=== PATIENT | female | born 1980 | race Caucasian/White ===

== ENCOUNTER 2018-02-15 02:27 | Emergency (ER) | payer SELFPAY ==
--- NOTE | 2018-02-15 02:48 | ED ---
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 She was found unconscious by her roommate. The patient has a history of alcohol abuse. The nurse reports that she does not smell of alcohol but has vomited once in the ED. Nurse reports that she responds to verbal stimulation and was last seen normal at 10am. Level 5 caveat , unable to speak. - History Of Current Complaint Chief Complaint: EDSubstanceAbuse Stated Complaint: UNCONSCIOUS Time Seen by Provider: 02/15/18 02:40 Hx Obtained From: EMS Hx From Patient Unobtainable Due To: Extremis - unconscious Hx Last Menstrual Period: 1 WEEK AGO Character: Other - unconscious - Allergies/Home Medications Allergies/Adverse Reactions: Allergies Allergy/AdvReac Type Severity Reaction Status Date / Time No Known Allergies Allergy Verified 02/15/13 19:38 PMH/Surg Hx/FS Hx/Imm Hx Endocrine/Hematology History: Denies: Hx Diabetes, Hx Thyroid Disease Cardiovascular History: Denies: Hx Hypertension Respiratory History: Reports: Hx Asthma, Other Respiratory Problems/Disorders - HX OF PNEUMONIA Denies: Hx Chronic Obstructive Pulmonary Disease (COPD) GI History: Denies: Hx Ulcer Infectious Disease History: Unable to Obtain/Confirm Infectious Disease History: Denies: Hx Hepatitis, Hx Human Immunodeficiency Virus (HIV), Traveled Outside the [place] in Last 30 Days - Family History Known Family History: Positive: Unknown - Social History Substance Use Type: Reports: None Review of Systems - ROS Summary Review of Systems Summary: level 5 caveat, unconscious All Other Systems Reviewed And Are Negative: No Physical Exam - Summary Physical Exam Summary: Appearance: Well-appearing, Well-nourished, lying in bed comfortable. Skin: Warm, dry, no obvious rash Eyes: sclera anicteric, no conjunctival pallor ENT: mucous membranes moist Neck: deferred Respiratory: No signs of respiratory distress Cardiovascular: Appears well perfused, pulses are nml Abdomen: deferred Musculoskeletal: Moving all 4 extremities without obvious discomfort Neurological: Depressed level of consciousness. Nurse says she was aroused while being changed. Psychiatric: affect is normal, does not appear anxious or depressed Triage Information Reviewed: Yes Vital Signs On Initial Exam: Initial Vitals Temp Pulse Resp BP Pulse Ox 97.6 F 66 16 129/70 95 02/15/18 02:30 02/15/18 02:30 02/15/18 02:30 02/15/18 02:30 02/15/18 02:30 Vital Signs Reviewed: Yes Completion Of Physical Exam Limited Due To: Other - unconscious Diagnostics - Vital Signs Vital Signs Temp Pulse Resp BP Pulse Ox 02/15/18 02:30 97.6 F 66 16 129/70 95 - Laboratory Result Diagrams: 02/15/18 02:55 02/15/18 02:55 Lab Statement: Any lab studies that have been ordered have been reviewed, and results considered in the medical decision making process. 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 She was found unconscious by her roommate. The patient has a history of alcohol abuse. The nurse reports that she does not smell of alcohol but has vomited once in the ED. Nurse reports that she responds to verbal stimulation and was last seen normal at 10am. Level 5 caveat, unable to speak. Test results with no significant abnormalities. In the ED course the patient was given Acetaminophen. Patient will be signed out to Dr. Denis due to MHE - Diagnoses Differential Diagnosis/HQI/PQRI: Positive: Alcohol Abuse, Metabolic Disorder, Suicidal Risk Provider Diagnoses: Alcohol intoxication delirium Discharge - Sign-Out/Discharge Documenting (check all that apply): Sign-Out Patient Signing out patient TO: Juan Antonio Denis - Discharge Plan Patient Education Materials: Abuse of Alcohol (ED) Referrals: [facility] [Outside] [facility] [Outside] Maximo Beltran MD [Primary Care Provider] - - Attestation Statements Document Initiated by Scribe: Yes Documenting Scribe: Daniel Schmidt Provider For Whom Scribe is Documenting (Include Credential): Ernie Fung MD Scribe Attestation: Daniel Braxton, scribed for Ernie Fung MD on 02/15/18 at 0654. Status of Scribe Document: Ready
[2018-02-15 03:10] LABS: ABS Basophils 0.1 10^3/ul (0-0.2); ABS Eosinophils 0.1 10^3/ul (0-0.6); ABS Lymphocytes 2.6 10^3/ul (1.0-4.8); ABS Monocytes 0.8 10^3/ul (0-0.8); ABS Neutrophils 8.5 10^3/ul (1.5-7.7); ABS Nucleated RBC 0 10^3/ul; Eosinophil % 1.1 %; Hematocrit 47 % (35-47); Hemoglobin 15.5 g/dl (12.0-16.0); Lymphocyte % 21.7 %; Mean Corpuscular HGB Conc 33 g/dl (31-36); Mean Corpuscular Hemoglobin 31 pg (27-31); Mean Corpuscular Volume 95 fL (80-97); Mean Platelet Volume 7.1 fL (7.4-10.4); Nucleated Red Blood Cells % 0.1; Platelet Count 305 10^3/ul (150-450); Red Blood Count 4.95 10^6/ul (4.00-5.40); Red Cell Distribution Width 13 % (10.5-15); White Blood Count 12.1 10^3/ul (3.5-10.8)
[2018-02-15 03:30] LABS: EGFR Non-African American 83.9 (>60)
--- NOTE | 2018-02-15 07:25 | ED ---
Progress - Progress Note Progress Note: This patient was signed out from Dr. Fung on shift change awaiting MHE. After MHE by Dr. Palomino the patient was deemed stable to be discharged home with a dx of depression. She will f[facility]u with [facility]. Re-Evaluation - Re-Evaluation First Eval Re-Evaluation Time: 06:40 Comment: the patient is now suicidal and will be seen my mental health Second Eval Re-Evaluation Time: 07:23 Change: Worse Comment: The patient is expressing SI and will be put on observation. Course/Dx - Course Course Of Treatment: This patient was signed out from Dr. Fung on shift change awaiting MHE. After MHE by Dr. Palomino the patient was deemed stable to be discharged home with a dx of depression. She will f[facility] with [facility]. - Diagnoses Provider Diagnoses: Depression Discharge - Sign-Out/Discharge Documenting (check all that apply): Patient Departure, Receiving Sign-Out Receiving patient FROM: Ernie Fung - Discharge Plan Condition: Stable Disposition: HOME Patient Education Materials: Depression (ED), Abuse of Alcohol (ED) Referrals: [facility] [Outside] [facility] [Outside] [facility] [Outside] (please follow up with your appt on February [address] Doe) Maximo Beltran MD [Primary Care Provider] - - Billing Disposition and Condition Condition: STABLE Disposition: Home - Attestation Statements Document Initiated by Jade: Yes Documenting Scribe: Juan Daniel Martinez Provider For Whom Angellaibe is Documenting (Include Credential): Juan Antonio Denis MD Scribe Attestation: IJuan Daniel scribed for Juan Antonio Denis MD on 02/15/18 at 1732. Scribe Documentation Reviewed: Yes Provider Attestation: The documentation as recorded by the Juan Daniel turcios accurately reflects the service I personally performed and the decisions made by me, Juan Antonio Denis MD Status of Scribe Document: Viewed
[2018-02-15 09:25] LABS: Urine Appearance Cloudy; Urine Blood Negative (Negative); Urine Color Yellow; Urine Ketones 1+ (Negative); Urine Protein Negative (Negative); Urine Specific Gravity 1.019 (1.010-1.030); Urine Urobilinogen Negative (Negative)
[2018-02-15] MEDS ORDERED: diPHENhydraMINE PO* 25 MG PO ONE (10:15)
[2018-02-15] MEDS ORDERED: diPHENhydraMINE PO* 25 MG ONE (10:18)
[2018-02-15 16:09] VITALS: BP 117/84
== END 2018-02-15 16:28 | disposition home or self-care (01) ==
LOC: ED 02:27
DX: F10.921 Alcohol use, unspecified with intoxication delirium (principal)
CPT/HCPCS: 36415; 80053; 80307; 80320; 80329; 81003; 84702; 85025; 99285; A9270-GY; G0480

== ENCOUNTER 2019-05-12 21:00 | Inpatient (IN) | payer OTHER ==
[2019-05-12] MEDS ORDERED: NS 0.9% 1000 ML** 1,000 ML IV ONE (21:07)
--- NOTE | 2019-05-12 21:08 | ED ---
Substance Abuse/Use - HPI Summary HPI Summary: 38-year-old female presents to the emergency department today after being brought in by police via 941 for substance abuse and attempts to kill herself. Patient states she took "a lot of pills because I want to ". Patient has a bag of medicine however she is uncertain the exact medicines or quantity she took. Patients bag contains mirtazapine, trazodone, citalopram, Xanax, hydroxyzine. Patient states she took approximately 20 tabs of 0.25 mg Xanax. Patient also reports alcohol use this evening but is uncertain how much. Patient denies other recreational drug use. Patient is tearful and conversation however she does not appear to be any acute distress. Patient is alert and oriented 3. Patient is otherwise well and denies cough, shortness of breath, chest pain, abdominal pain, pain with urination, rash, nausea, vomiting, diarrhea. - History Of Current Complaint Stated Complaint: 941 PER POLICE Time Seen by Provider: 05/12/19 21:02 Hx Obtained From: Patient Onset/Duration of Drug/ETOH Abuse: Hours Overdose Characteristics: Oral Timing Of Abuse: Daily Character: Depressed, Anxious Related Hx: Suicidal: Thoughts, Suicidal: Gesture
--- NOTE | 2019-05-12 21:17 | ED ---
Psychiatric Complaint - HPI Summary HPI Summary: Patient is a 38 y/o F presenting to [facility] via EMS under 941 status for suicide attempt this evening, 05/12/19. The patient has a purple lunchbox which contains a mixture of her prescribed medications (Mirtazapime, Trazadone, Citalopram, Xanax, Hydroxyzine, and Gabapentin). She reports taking an unknown quantity and mixture of these medications in a suicide attempt. Patient also states that she drank a bottle of scotch. It is reported that the patient's friend had gone to check on her this evening as the friend had not heard from the patient in the past few days. Friend found the patient, EMS was called. Patient denies taking Tylenol or ibuprofen. No other substances noted. In the room, patient states, " I just don't want to be alive". Patient notes that she has been under recent stress. No hallucinations noted. No fever as vitals show temp of 96.4 F. Home medications and allergies are reviewed. Active (Home) Medications Medication Instructions Recorded Confirmed Type ALPRAZolam [Xanax] 0.25 mg PO WEEKLY 05/12/19 05/12/19 History Escitalopram Oxalate [Lexapro 10 15 mg PO DAILY 05/12/19 05/12/19 History mg] Gabapentin [Neurontin] 100 mg PO DAILY WITH MEAL MDD 200mg 05/12/19 05/12/19 History Mirtazapine 7.5 mg PO DAILY 05/12/19 05/12/19 History Naltrexone TAB* 50 mg PO BEDTIME 05/12/19 05/12/19 History Valacyclovir HCl [Valacyclovir] 1,000 mg PO BID 05/12/19 05/12/19 History hydrOXYzine HCL [Hydroxyzine HCl] 10 mg PO BEDTIME 05/12/19 05/12/19 History traZODone TAB* [Desyrel TAB*] 50 mg PO BEDTIME 05/12/19 05/12/19 History - History Of Current Complaint Chief Complaint: EDSuicidal Time Seen by Provider: 05/12/19 21:02 Hx Obtained From: Patient Onset/Duration: Still Present Timing: Constant Severity Currently: Severe Character: Depressed Aggravating Factor(s): Recent Stress Has Suicidal: Reports: Thoughts, With A Plan, Demonstrates Gesture - Allergies/Home Medications Allergies/Adverse Reactions: Allergies Allergy/AdvReac Type Severity Reaction Status Date / Time No Known Allergies Allergy Verified 05/15/19 08:11 Home Medications: Home Medications Aspirin TAB* [Aspirin 325 MG TAB*] 650 mg PO Q6HR PRN 02/15/13 [History Confirmed 02/15/18] ALPRAZolam [Xanax] 0.25 mg PO WEEKLY 05/12/19 [History Confirmed 05/12/19] Escitalopram Oxalate [Lexapro 10 mg] 15 mg PO DAILY 05/12/19 [History Confirmed 05/12/19] Gabapentin [Neurontin] 100 mg PO DAILY WITH MEAL MDD 200mg 05/12/19 [History Confirmed 05/12/19] Mirtazapine 7.5 mg PO DAILY 05/12/19 [History Confirmed 05/12/19] Naltrexone TAB* 50 mg PO BEDTIME 05/12/19 [History Confirmed 05/12/19] Valacyclovir HCl [Valacyclovir] 1,000 mg PO BID 05/12/19 [History Confirmed ] hydrOXYzine HCL [Hydroxyzine HCl] 10 mg PO BEDTIME 05/12/19 [History Confirmed 05/12/19] traZODone TAB* [Desyrel TAB*] 50 mg PO BEDTIME 05/12/19 [History Confirmed 05/12] PMH/Surg Hx/FS Hx/Imm Hx Sensory History: Denies: Hx Legally Blind, Hx Deafness Opthamlomology History: Denies: Hx Legally Blind EENT History: Denies: Hx Deafness Psychiatric History: Reports: Hx Depression Infectious Disease History: No Infectious Disease History: Denies: Traveled Outside the [place] in Last 30 Days - Family History Known Family History: Positive: Other - SUICIDE - Social History Alcohol Use: Daily Substance Use Type: Reports: None Smoking Status (MU): Never Smoked Tobacco Review of Systems Constitutional: Other - alcohol and medication consumption Negative: Fever - No fever as vitals show temp of 96.4 F. Psychological: Other - positive - SI, suicide attempt; negative - hallucinations Positive: Depressed All Other Systems Reviewed And Are Negative: Yes Physical Exam - Summary Physical Exam Summary: Appearance: Well-appearing, Well-nourished, lying in bed comfortably Skin: Warm, dry, no obvious rash Eyes: sclera anicteric, no conjunctival pallor HENT: mucous membranes moist, pharynx appears normal Neck: Supple, nontender Respiratory: Clear to auscultation, no signs of respiratory distress Cardiovascular: Normal S1, S2. No murmurs. Normal distal pulses in tibial and radial bilaterally. Abdomen: Soft, nontender, normal active bowel sounds present Musculoskeletal: Normal, Strength/ROM Intact Neurological: A&Ox3, awake and alert, mentation is normal, speech is fluent and appropriate Psychiatric: Depressed, tearful, hopeless, helpless, does not think things will get better, positive SI; no hallucinations. Triage Information Reviewed: Yes Vital Signs On Initial Exam: Initial Vitals Temp Pulse Resp BP Pulse Ox 96.4 F 94 20 157/103 98 05/12/19 21:02 05/12/19 21:02 05/12/19 21:02 05/12/19 21:02 05/12/19 21:02 Vital Signs Reviewed: Yes Procedures - Sedation Patient Received Moderate/Deep Sedation with Procedure: No Diagnostics - Vital Signs Vital Signs Temp Pulse Resp BP Pulse Ox 05/12/19 21:02 96.4 F 94 20 157/103 98 - Laboratory Result Diagrams: 05/12/19 21:23 05/12/19 21:23 Lab Statement: Any lab studies that have been ordered have been reviewed, and results considered in the medical decision making process. Course/Dx - Course Course Of Treatment: Patient is a 38 y/o F presenting to [facility] via EMS under 941 status for suicide attempt this evening, 05/12/19. The patient has a purple lunchbox which contains a mixture of her prescribed medications (Mirtazapime, Trazadone, Citalopram, Xanax, Hydroxyzine, and Gabapentin). She reports taking an unknown quantity and mixture of these medications in a suicide attempt. Patient also states that she drank a bottle of scotch. It is reported that the patient's friend had gone to check on her this evening as the friend had not heard from the patient in the past few days. Friend found the patient, EMS was called. Patient denies taking Tylenol or ibuprofen. No other substances noted. In the room, patient states, "I just don't want to be alive". Patient notes that she has been under recent stress. No hallucinations noted. Psychiatric Exam: Depressed, tearful, hopeless, helpless, does not think things will get better, positive SI; no hallucinations. Bloodwork was obtained. Tox screen showed presumptive positive of benzodiazepines and serum alcohol of 31. UA was negative. Bloodwork was within normal limits with exception of MPV 6.8, BUN/ creatinine ratio 20.2, and calcium 8.5. VBG showed pCO2 54, O2 saturation 51.5, and base excess 4.5. During ED course, patient received fluids. Patient received mental health evaluation. Patients case was reviewed by Dr. Samson, patient to be admitted to [facility]. She was observed in ED under tele- monitoring for several hours and remained stable. Patient admitted to [facility]. - Differential Dx/Clinical Impression Provider Diagnosis: Depressive disorder, Overdose - Physician Notifications Discussed Care Of Patient With: Justus Samson Time Discussed With Above Provider: 00:18 Instructed by Provider To: Other - Patient's case was reviewed by Dr. Samson, patient admitted to [facility] psych Discharge ED - Sign-Out/Discharge Documenting (check all that apply): Patient Departure - admit All imaging exams completed and their final reports reviewed: No Studies - Discharge Plan Condition: Stable Disposition: PSYCHIATRIC FACILITY-[facility] - Billing Disposition and Condition Condition: STABLE Disposition: Psychiatric Facility [facility] - Attestation Statements Document Initiated by Scribe: Yes Documenting Scribe: LAURYN RODRIGUEZ Provider For Whom Jade is Documenting (Include Credential): MERCEDEZ CONNER MD Scribe Attestation: LAURYN Braxton, scribed for MERCEDEZ CONNER MD on 05/24/19 at 0234. Scribe Documentation Reviewed: Yes Provider Attestation: The documentation as recorded by the LAURYN turcios accurately reflects the service I personally performed and the decisions made by me, MERCEDEZ CONNER MD Status of Scribe Document: Viewed
[2019-05-12 21:35] LABS: ABS Basophils 0.1 10^3/ul (0-0.2); ABS Lymphocytes 1.8 10^3/ul (1.0-4.8); ABS Monocytes 0.6 10^3/ul (0-0.8); ABS Neutrophils 4.7 10^3/ul (1.5-7.7); Eosinophil % 0.6 %; Hematocrit 43 % (35-47); Hemoglobin 14.8 g/dL (12.0-16.0); Lymphocyte % 24.7 %; Mean Corpuscular HGB Conc 34 g/dL (31-36); Mean Corpuscular Hemoglobin 31 pg (27-31); Mean Corpuscular Volume 89 fL (80-97); Mean Platelet Volume 6.8 fL (7.4-10.4); Nucleated Red Blood Cells % 0.1; Platelet Count 272 10^3/uL (150-450); Red Blood Count 4.85 10^6 /uL (3.70-4.87); Red Cell Distribution Width 12 % (10-15); White Blood Count 7.2 10^3/uL (3.5-10.8)
[2019-05-12 21:47] LABS: ALT 19 U/L (7-52); AST 22 U/L (13-39); Albumin 4.2 g/dL (3.2-5.2); Albumin/Globulin Ratio 1.4 (1-3); Alkaline Phosphatase 55 U/L (34-104); Anion Gap 9 mmol/L (2-11); BUN/Creatinine Ratio 20.2 (8-20); Blood Urea Nitrogen 17 mg/dL (6-24); CO2 Carbon Dioxide 28 mmol/L (22-32); Calcium 8.5 mg/dL (8.6-10.3); Chloride 101 mmol/L (101-111); EGFR African American 91.3 (>60); EGFR Non-African American 75.5 (>60); Glucose 100 mg/dL (70-100); Potassium 3.7 mmol/L (3.5-5.0); Sodium 138 mmol/L (135-145); Total Protein 7.2 g/dL (6.4-8.9)
[2019-05-12 22:32] LABS: Acetaminophen 1 mcg/mL; Alcohol 31 mg/dL (<10)
[2019-05-12 23:22] LABS: Urine Appearance Clear; Urine Bilirubin Negative (Negative); Urine Blood Negative (Negative); Urine Color Yellow; Urine Glucose Negative (Negative); Urine Ketones Negative (Negative); Urine Nitrite Negative (Negative); Urine Protein Negative (Negative); Urine Specific Gravity 1.024 (1.010-1.030); Urine Urobilinogen Negative (Negative)
[2019-05-12 23:38] LABS: Urine Benzodiazepine Screen Presumptive Positive (None Detect); Urine Opiates Screen None Detected (None Detect)
[2019-05-13] MEDS ORDERED: Acetaminophen TAB* 325 MG PO PRN (03:50)
[2019-05-13] MEDS ORDERED: Al Hydrox/Mg Hydrox/Simet LIQ* 30 ML UDC PO PRN (03:50)
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
[2019-05-13] MEDS ORDERED: Vitamin THERAPEUTIC TAB PO SCH (09:00)
[2019-05-13 11:51] LABS: HCG Pregnancy < 0.60 mIU/mL
[2019-05-13] MEDS ORDERED: LORazepam TAB(*) 1 MG PO SCH (13:00)
[2019-05-13] MEDS: Multivitamins/Minerals TAB PO SCH (13:40)
[2019-05-13] MEDS: Folic Acid TAB* 1 MG PO SCH (13:40)
[2019-05-13] MEDS: Thiamine TAB* 100 MG TAB PO SCH (13:40)
[2019-05-14 08:10] LABS: HDL Cholesterol 62.7 mg/dL
--- NOTE | 2019-05-14 08:17 | PN ---
Subjective - Subjective Date of Service: 05/14/19 Service Type: 42079 Hosp care 35 min high complexity Subjective: Nursing Report: Patient was visible on unit, no behavioral incidents. Slept overnight. Attending some group activities. CC: "I want to jump in front of a car Patient was seen and evaluated today. The patient reported having bouts of nausea. She did report sleeping well last evening. She reported having adequate appetite and sleep. The patient reports attending some day groups. Per nursing no behavioral issues or overnight events reported. Patient declined alcohol treatment or rehabilitation services. She is suicidal and plans to jump in front of a car. Patient denied tremor, hallucinations seizures. Objective - General Observations Appearance: Disheveled Appears Stated Age: Yes Stature: WNL Posture: Slumped Eye Contact: Avoidant Behavior/Activity: Impulsive - Interaction Observations Attitude Towards Examiner: Anxious Stated Mood: Dysphoric Affect: Restricted Speech Pattern/Tone: Normal Volume Thought Process: Goal Directed Perception: WNL Thought Content: Self-Deprecatory Thought Process: Lethality: Suicidal Planning Hallucination Type: Denies Delusion Type: Denies - Cognitive Function Orientation: A&O x 4 Level of Consciousness: Awake - Medication Compliance Cooperative with Inpatient Medication Regimen: Yes - Group Participation Participates in Group Activities: Partial Assessment - Assessment Merits Inpatient Hospitalization: For Immediate Safety Clinical Impression: 38 year old Female with a history of bipolar disorder and alcohol use disorder presented to the emergency department by EMS following a suicide attempt and was admitted to the BSU at [facility]. Plan - Plan Treatment Plan: Name: DARA FOURNIER Birthdate: 1980 [id number] # Q15 minute observation # The patient requires psychiatric inpatient admission at this time to assure safety, receive treatment and work toward stabilization. # WAM protocol # Fall precautions gait has improved # Hold psychiatric medications for now # Start lithium 150mg BID tomorrow # EKG ordered QTc 452 # B-HCG was ordered and results are negative. # Obtain collateral information once release is signed. # Collaboration with Warehouse Traffic Supervisor Andria Thomas, #Substance Abuse resources offered and declined # Patient declined alcohol treatment options # Recommend DBT for Borderline personality disorder # Family meeting 1pm VBG pH 7.37 (7.32-7.43) 05/12/19 21:23 Sodium 138 mmol/L (135-145) 05/12/19 21:23 Potassium 3.7 mmol/L (3.5-5.0) 05/12/19 21: BUN 17 mg/dL (6-24) 05/12/19 21: Creatinine 0.84 mg/dL (0.51-0.95) 05/12/19 21: Hemoglobin A1c 5.4 % (4.0-5.6) 05/14/19 07:27 Calcium 8.5 mg/dL (8.6-10.3) L 05/12/19 21: AST 22 U/L (13-39) 05/12/19 21: ALT 19 U/L (7-52) 05/12/19 21: Triglycerides 141 mg/dL 05/14/19 07:27 Cholesterol 214 mg/dL 05/14/19 07:27 LDL Cholesterol 123 mg/dL 05/14/19 07:27 Continued Medication Management: Continue Outpt Medication Medications: Current Medications Acetaminophen (Tylenol Tab*) 650 mg PO Q4H PRN PRN Reason: PAIN or TEMP > 101 F Al Hydrox/Mg Hydrox/Simethicone (Maalox Plus*) 30 ml PO Q4H PRN PRN Reason: INDIGESTION Folic Acid (Folvite Tab*) 1 mg PO DAILY [facility] Last Admin: 05/13/19 13:40 Dose: 1 mg Lorazepam (Ativan Tab(*)) 0 - 6 mg PO .PER [facility] PROTOCOL [facility]; Protocol Multivitamins/Minerals (Theragran/Minerals Tab*) 1 tab PO DAILY [facility] Last Admin: 05/13/19 13:40 Dose: 1 tab Thiamine HCl (Vitamin B-1 Tab*) 200 mg PO DAILY [facility] Last Admin: 05/13/19 13:40 Dose: 200 mg - Discharge Plan Discharge Plan: Inpatient Hospitalization
[2019-05-14] MEDS ORDERED: Ondansetron ODT TAB* 4 MG PO ONE (10:21)
[2019-05-14] MEDS: Multivitamins/Minerals TAB PO SCH (10:28)
[2019-05-14] MEDS: Thiamine TAB* 100 MG TAB PO SCH (10:29)
[2019-05-14] MEDS: Folic Acid TAB* 1 MG PO SCH (10:29)
[2019-05-14] MEDS ORDERED: OLANzapine TAB*ODT* 5 MG PO ONE (15:10)
[2019-05-14] MEDS ORDERED: OLANzapine TAB*ODT* 5 MG ONE (15:15)
[2019-05-14] MEDS: Lithium Carbonate CAP 150 MG ** CAPSULE PO SCH ×2 (15:52→17:19)
[2019-05-14] MEDS ORDERED: OLANzapine TAB*ODT* 10 MG TAB PO PRN (16:03)
[2019-05-14] MEDS: busPIRone TAB* 10 MG PO SCH (20:43)
[2019-05-15] MEDS: Folic Acid TAB* 1 MG PO SCH (09:38)
[2019-05-15] MEDS: Thiamine TAB* 100 MG TAB PO SCH (09:38)
[2019-05-15] MEDS: busPIRone TAB* 10 MG PO SCH ×3 (09:39→20:23)
[2019-05-15] MEDS: Multivitamins/Minerals TAB PO SCH (09:39)
[2019-05-15] MEDS: Lithium Carbonate CAP 150 MG ** CAPSULE PO SCH ×2 (09:39→20:23)
[2019-05-15] MEDS: OLANzapine TAB*ODT* 5 MG PO PRN (11:14)
[2019-05-15] MEDS ORDERED: Ondansetron TAB* 4 MG PO PRN (11:14)
--- NOTE | 2019-05-15 11:38 | PN ---
Subjective - Subjective Date of Service: 05/15/19 Service Type: 95970 Hosp care 35 min high complexity Subjective: Nursing Report: Patient was visible on unit, Attending group activities. Ate meals CC: "I have no reason to live Patient was seen and evaluated today. The patient reported that her depression is worse in the morning and improves during the day. She reported trouble with sleep. Last evening she told staff that she plans to hang herself with her pants. She was placed on constant observation. She inquires about treatments that will help her sleep. Patient reported feel nauseous and was given zofran. The patient reports attending day groups. She denied tremor, hallucinations, seizures. Objective - General Observations Appearance: Neat Appears Stated Age: Yes Stature: Overweight Posture: Slumped Eye Contact: Avoidant Behavior/Activity: Slowed - Interaction Observations Attitude Towards Examiner: Cooperative Stated Mood: Dysphoric Affect: Restricted Speech Pattern/Tone: Appropriate Thought Process: Coherent Perception: WNL Thought Content: Depressive Thought Process: Lethality: Suicidal Planning Hallucination Type: Denies Delusion Type: Denies - Cognitive Function Orientation: A&O x 4 Level of Consciousness: Awake - Medication Compliance Cooperative with Inpatient Medication Regimen: Yes - Group Participation Participates in Group Activities: Yes Assessment - Assessment Merits Inpatient Hospitalization: For Immediate Safety Clinical Impression: 38 year old Female with a history of bipolar disorder and alcohol use disorder presented to the emergency department by EMS following a suicide attempt and was admitted to the BSU at [facility]. Plan - Plan Treatment Plan: Name: DARA FOURNIER Birthdate: 1980 [id number] # Can discontinue constant observation and start Q15 minute observation # The patient requires psychiatric inpatient admission at this time to assure safety, receive treatment and work toward stabilization. # Discontinue WAM protocol # Continue lithium 150mg BID # EKG ordered QTc 452 # B-HCG was ordered and results are negative. # Obtain collateral information once release is signed. 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 qhs for melancholic type of depression as well as with sleep # MMPI # Family meeting 1pm VBG pH 7.37 (7.32-7.43) 05/12/19 21:23 Sodium 138 mmol/L (135-145) 05/12/19 21: Potassium 3.7 mmol/L (3.5-5.0) 05/12/19 21: BUN 17 mg/dL (6-24) 05/12/19 21: Creatinine 0.84 mg/dL (0.51-0.95) 05/12/19 21: Hemoglobin A1c 5.4 % (4.0-5.6) 05/14/19 07:27 Calcium 8.5 mg/dL (8.6-10.3) L 05/12/19 21: AST 22 U/L (13-39) 05/12/19 21: ALT 19 U/L (7-52) 05/12/19 21: Triglycerides 141 mg/dL 05/14/19 07:27 Cholesterol 214 mg/dL 05/14/19 07:27 LDL Cholesterol 123 mg/dL 05/14/19 07:27 Continued Medication Management: Continue Outpt Medication Medications: Current Medications Acetaminophen (Tylenol Tab*) 650 mg PO Q4H PRN PRN Reason: PAIN or TEMP > 101 F Al Hydrox/Mg Hydrox/Simethicone (Maalox Plus*) 30 ml PO Q4H PRN PRN Reason: INDIGESTION Buspirone HCl (Buspar Tab*) 10 mg PO TID [facility] Last Admin: 05/15/19 09:39 Dose: 10 mg Folic Acid (Folvite Tab*) 1 mg PO DAILY [facility] Last Admin: 05/15/19 09:38 Dose: 1 mg [place] Carbonate ([place] Carbonate Cap) 150 mg PO BID [facility] Last Admin: 05/15/19 09:39 Dose: 150 mg Lorazepam (Ativan Tab(*)) 0 - 6 mg PO .PER [facility] PROTOCOL [facility]; Protocol Multivitamins/Minerals (Theragran/Minerals Tab*) 1 tab PO DAILY [facility] Last Admin: 05/15/19 09:39 Dose: 1 tab Olanzapine (Zyprexa * Tab Odt) 5 mg PO Q6H PRN PRN Reason: AGITATION Last Admin: 05/15/19 11:14 Dose: 5 mg Ondansetron HCl (Zofran Tab*) 4 mg PO Q8H PRN PRN Reason: NAUSEA Last Admin: 05/15/19 11:31 Dose: 4 mg Thiamine HCl (Vitamin B-1 Tab*) 200 mg PO DAILY [facility] Last Admin: 05/15/19 09:38 Dose: 200 mg - Discharge Plan Discharge Plan: Inpatient Hospitalization
[2019-05-15] MEDS: Amitriptyline TAB* 50 MG PO SCH (20:24)
[2019-05-15] MEDS ORDERED: Amitriptyline TAB* 25 MG PO SCH (21:00)
[2019-05-16] MEDS: OLANzapine TAB*ODT* 5 MG PO PRN (03:53)
[2019-05-16] MEDS: Lithium Carbonate CAP 150 MG ** CAPSULE PO SCH (10:33)
[2019-05-16] MEDS: busPIRone TAB* 10 MG PO SCH ×3 (10:33→20:44)
[2019-05-16] MEDS: Thiamine TAB* 100 MG TAB PO SCH (10:33)
[2019-05-16] MEDS: Folic Acid TAB* 1 MG PO SCH (10:33)
--- NOTE | 2019-05-16 12:25 | PN ---
Subjective - Subjective Date of Service: 05/16/19 Service Type: [id number] Hosp care 35 min high complexity Subjective: Nursing Report: Patient was visible on unit, no behavioral incidents. Attending group activities. CC: "I am doing better today Patient was seen and evaluated today. The patient reported she woke up in the middle of the night and took zyprexa to go to sleep. She reported feeling better today and attributes it to new medications. She is thinking of going back to school from a medical leave. She reported having adequate appetite. The patient reports attending day groups. Per nursing no behavioral issues or overnight events reported. Patient reported that she is tolerating medications without side effects. Objective - General Observations Appearance: Neat Appears Stated Age: Yes Stature: WNL Posture: Slumped Eye Contact: Average Behavior/Activity: Accelerated - Interaction Observations Attitude Towards Examiner: Cooperative Stated Mood: Dysphoric Affect: Restricted Speech Pattern/Tone: Appropriate, Normal Volume Thought Process: Coherent Perception: WNL Thought Content: WNL Thought Process: Lethality: Passive Wish Hallucination Type: None Delusion Type: None - Cognitive Function Orientation: A&O x 4 Level of Consciousness: Awake - Medication Compliance Cooperative with Inpatient Medication Regimen: Yes - Group Participation Participates in Group Activities: Partial Assessment - Assessment Merits Inpatient Hospitalization: For Immediate Safety Clinical Impression: 38 year old Female with a history of bipolar disorder and alcohol use disorder presented to the emergency department by EMS following a suicide attempt and was admitted to the BSU at [facility]. Plan - Plan Treatment Plan: Name: DARA FOURNIER Birthdate: 1980 [id number] # Q15 minute observation # The patient requires psychiatric inpatient admission at this time to assure safety, receive treatment and work toward stabilization. # EKG ordered QTc 452 # B-HCG was ordered and results are negative. # Obtain collateral information once release is signed. # Collaboration with Legal Intern Andria Thomas # Patient declined alcohol treatment options # DBT for Borderline personality disorder # Amitriptyline 50mg qhs for melancholic type of depression as well as with sleep # MMPI # [place] 300mg qhs # [place] level Monday # Family meeting 1pm mother confirmed no access to firearms Tentative discharge Monday Next week VBG pH 7.37 (7.32-7.43) 05/12/19 21:23 Sodium 138 mmol/L (135-145) 05/12/19 21: Potassium 3.7 mmol/L (3.5-5.0) 05/12/19 21: BUN 17 mg/dL (6-24) 05/12/19 21: Creatinine 0.84 mg/dL (0.51-0.95) 05/12/19 21: Hemoglobin A1c 5.4 % (4.0-5.6) 05/14/19 07: Calcium 8.5 mg/dL (8.6-10.3) L 05/12/19 21: AST 22 U/L (13-39) 05/12/19 21: ALT 19 U/L (7-52) 05/12/19 21: Triglycerides 141 mg/dL 05/14/19 07:27 Cholesterol 214 mg/dL 05/14/19 07:27 LDL Cholesterol 123 mg/dL 05/14/19 07:27 Continued Medication Management: Continue Outpt Medication Medications: Current Medications Acetaminophen (Tylenol Tab*) 650 mg PO Q4H PRN PRN Reason: PAIN or TEMP > 101 F Al Hydrox/Mg Hydrox/Simethicone (Maalox Plus*) 30 ml PO Q4H PRN PRN Reason: INDIGESTION Amitriptyline HCl (Elavil Tab*) 50 mg PO BEDTIME [facility] Last Admin: 05/15/19 20:24 Dose: 50 mg Buspirone HCl (Buspar Tab*) 10 mg PO TID [facility] Last Admin: 05/16/19 10:33 Dose: 10 mg Folic Acid (Folvite Tab*) 1 mg PO DAILY [facility] Last Admin: 05/16/19 10:33 Dose: 1 mg [place] Carbonate ([place] Carbonate Cap) 150 mg PO BID [facility] Last Admin: 05/16/19 10:33 Dose: 150 mg Olanzapine (Zyprexa * Tab Odt) 5 mg PO Q6H PRN PRN Reason: AGITATION Last Admin: 05/16/19 03:53 Dose: 5 mg Ondansetron HCl (Zofran Tab*) 4 mg PO Q8H PRN PRN Reason: NAUSEA Last Admin: 05/15/19 11:31 Dose: 4 mg Thiamine HCl (Vitamin B-1 Tab*) 200 mg PO DAILY [facility] Last Admin: 05/16/19 10:33 Dose: 200 mg - Discharge Plan Discharge Plan: Inpatient Hospitalization
--- NOTE | 2019-05-16 12:57 | PN ---
BSU: Group Therapy Note - Service Type Service Type: 34349 Group Psychotherapy - Cognitive Behavioral Group Therapy ( CBT):Patient was attentive and participatory in CBT programming this morning, and remained in good behavioral control. Patient expressed positive insights regarding relevant treatment interventions and goals.
--- NOTE | 2019-05-16 16:17 | PN ---
BSU: Group Therapy Note - Service Type Service Type: 13502 Group Psychotherapy - Medication Education Group: Patient attended group and presented with flat affect that did not vary with discussion. Although responsive to direct prompts to respond to questions, patient did not engage in spontaneous conversation.
[2019-05-16] MEDS: Lithium Carbonate TAB* 300 MG PO SCH (20:44)
[2019-05-16] MEDS: Amitriptyline TAB* 50 MG PO SCH (20:44)
[2019-05-17] MEDS: OLANzapine TAB*ODT* 5 MG PO PRN (05:30)
--- NOTE | 2019-05-17 08:18 | PN ---
Subjective - Subjective Date of Service: 05/17/19 Service Type: 29263 Hosp care 35 min high complexity Subjective: Nursing Report: Patient was visible on unit, no behavioral incidents. Attending group activities. CC: "I am frustrated that I cant sleep Patient was seen and evaluated today. The patient reported she feels irritable because she did not sleep well overnight. She remembers waking up in the middle of the night and got zyprexa and went to sleep. She reported having adequate appetite. The patient reported attending some day groups. Per nursing no behavioral issues or overnight events reported. Patient reported that she is tolerating medications without side effects. Patient expressed how she wants to find another place to live once she is discharged. Objective - General Observations Appearance: Neat Appears Stated Age: Yes Stature: WNL Posture: WNL Eye Contact: Average Behavior/Activity: WNL - Interaction Observations Attitude Towards Examiner: Cooperative Stated Mood: Dysphoric Affect: Restricted Speech Pattern/Tone: Appropriate Thought Process: Coherent Perception: WNL Thought Content: Depressive Thought Process: Lethality: Passive Wish Hallucination Type: Denies Delusion Type: Denies - Cognitive Function Orientation: A&O x 4 Level of Consciousness: Awake - Medication Compliance Cooperative with Inpatient Medication Regimen: Yes - Group Participation Participates in Group Activities: Partial Assessment - Assessment Merits Inpatient Hospitalization: For Immediate Safety Clinical Impression: 38 year old Female with a history of bipolar disorder and alcohol use disorder presented to the emergency department by EMS following a suicide attempt and was admitted to the BSU at [facility]. Plan - Plan Treatment Plan: Name: DARA FOURNIER Birthdate: 1980 [id number] # Q30 minute observation with staff pass # The patient requires psychiatric inpatient admission at this time to assure safety, receive treatment and work toward stabilization. # EKG ordered QTc 452 # B-HCG was ordered and results are negative. # Obtain collateral information once release is signed. # Collaboration with Lead C Developer Andria Thomas # Patient declined alcohol treatment options # Patient plans to follow up at [facility] # DBT for Borderline personality disorder # Amitriptyline 75 mg daily # MMPI # [place] 300mg qhs # [place] level Monday # Trazodone 50mg qhs for sleep # Mother confirmed no access to firearms and plans to stay with patient after discharge Tentative discharge Monday VBG pH 7.37 (7.32-7.43) 05/12/19 21: Sodium 138 mmol/L (135-145) 05/12/19 21: Potassium 3.7 mmol/L (3.5-5.0) 05/12/19 21: BUN 17 mg/dL (6-24) 05/12/19 21: Creatinine 0.84 mg/dL (0.51-0.95) 05/12/19 21:23 Hemoglobin A1c 5.4 % (4.0-5.6) 05/14/19 07:27 Calcium 8.5 mg/dL (8.6-10.3) L 05/12/19 21: AST 22 U/L (13-39) 05/12/19 21: ALT 19 U/L (7-52) 05/12/19 21: Triglycerides 141 mg/dL 05/14/19 07:27 Cholesterol 214 mg/dL 05/14/19 07:27 LDL Cholesterol 123 mg/dL 05/14/19 07:27 Continued Medication Management: Continue Outpt Medication Medications: Current Medications Acetaminophen (Tylenol Tab*) 650 mg PO Q4H PRN PRN Reason: PAIN or TEMP > 101 F Al Hydrox/Mg Hydrox/Simethicone (Maalox Plus*) 30 ml PO Q4H PRN PRN Reason: INDIGESTION Amitriptyline HCl (Elavil Tab*) 75 mg PO BEDTIME [facility] Buspirone HCl (Buspar Tab*) 10 mg PO TID [facility] Last Admin: 05/16/19 20:44 Dose: 10 mg [place] Carbonate ([place] Carbonate Tab*) 300 mg PO BEDTIME [facility] Last Admin: 05/16/19 20:44 Dose: 300 mg Olanzapine (Zyprexa * Tab Odt) 5 mg PO Q6H PRN PRN Reason: AGITATION Last Admin: 05/17/19 05:30 Dose: 5 mg Ondansetron HCl (Zofran Tab*) 4 mg PO Q8H PRN PRN Reason: NAUSEA Last Admin: 05/15/19 11:31 Dose: 4 mg - Discharge Plan Discharge Plan: Inpatient Hospitalization Outpatient Program: [facility]
[2019-05-17] MEDS: busPIRone TAB* 10 MG PO SCH ×3 (10:07→21:08)
[2019-05-17] MEDS ORDERED: Docusate LIQ* 100 MG/10 ML UDC PO PRN (12:03)
[2019-05-17] MEDS ORDERED: Amitriptyline TAB* 25 MG PO SCH (21:00)
[2019-05-17] MEDS: Lithium Carbonate TAB* 300 MG PO SCH (21:08)
[2019-05-17] MEDS: traZODone TAB* 50 MG TAB PO SCH (22:06)
[2019-05-18] MEDS: Amitriptyline TAB* 25 MG PO SCH (08:57)
[2019-05-18] MEDS: busPIRone TAB* 10 MG PO SCH ×3 (08:59→20:56)
[2019-05-18] MEDS: Lithium Carbonate TAB* 300 MG PO SCH (20:57)
[2019-05-18] MEDS: traZODone TAB* 50 MG TAB PO SCH (21:59)
[2019-05-19] MEDS: busPIRone TAB* 10 MG PO SCH ×3 (09:13→21:18)
[2019-05-19] MEDS: Amitriptyline TAB* 25 MG PO SCH (09:13)
[2019-05-19] MEDS: traZODone TAB* 50 MG TAB PO SCH (21:18)
[2019-05-19] MEDS: Lithium Carbonate TAB* 300 MG PO SCH (21:19)
[2019-05-20] MEDS: Amitriptyline TAB* 25 MG PO SCH (09:16)
[2019-05-20] MEDS: busPIRone TAB* 10 MG PO SCH ×3 (09:16→21:35)
--- NOTE | 2019-05-20 12:19 | PN ---
Subjective - Subjective Date of Service: 05/20/19 Service Type: 04310 Hosp care 35 min high complexity Subjective: Nursing Report: Patient was visible on unit, no behavioral incidents. Slept overnight. Attending group activities. CC: "I do not feel safe for discharge Patient was seen and evaluated today. The patient reported that she does not feel safe for discharge. She would like to figure out her short term plans about where she plans on moving. She plans to return to school in a couple of months. She is in the process of completing the MMPI and creating a safety plan. She reported having adequate appetite and sleep. The patient reports attending day groups. Per nursing no behavioral issues or overnight events reported. Patient reported that she is tolerating medications without side effects. Patient declined to increase lithium dose. Objective - General Observations Appearance: Neat Appears Stated Age: Yes Stature: WNL Posture: Slumped Eye Contact: Average Behavior/Activity: WNL - Interaction Observations Attitude Towards Examiner: Anxious Stated Mood: Dysphoric Affect: Restricted Speech Pattern/Tone: Normal Volume Thought Process: Coherent Perception: WNL Thought Content: Depressive, Self-Deprecatory Thought Process: Lethality: Passive Wish Hallucination Type: None Delusion Type: None - Cognitive Function Orientation: A&O x 4 Level of Consciousness: Awake Estimated Intelligence: Normal - Medication Compliance Cooperative with Inpatient Medication Regimen: Yes - Group Participation Participates in Group Activities: Yes Assessment - Assessment Merits Inpatient Hospitalization: For Immediate Safety Clinical Impression: 38 year old Female with a history of bipolar disorder and alcohol use disorder presented to the emergency department by EMS following a suicide attempt and was admitted to the BSU at [facility]. Plan - Plan Treatment Plan: Name: DARA FOURNIER Birthdate: 1980 [id number] # Q30 minute observation with staff pass # The patient requires psychiatric inpatient admission at this time to assure safety, receive treatment and work toward stabilization. # EKG ordered QTc 452 # B-HCG was ordered and results are negative. # Obtain collateral information once release is signed. # Collaboration with Channel Turner Andria Thomas # Patient declined alcohol treatment options # Patient plans to follow up at [facility] # DBT for Borderline personality disorder # Amitriptyline 75 mg daily # MMPI in process # [place] 300mg qhs # [place] below normal limits patient refusing to increase dose # Trazodone 50mg qhs for sleep # Mother confirmed no access to firearms and plans to stay with patient after discharge Tentative discharge Monday VBG pH 7.37 (7.32-7.43) 05/12/19 21: Sodium 138 mmol/L (135-145) 05/12/19 21: Potassium 3.7 mmol/L (3.5-5.0) 05/12/19 21: BUN 17 mg/dL (6-24) 05/12/19 21: Creatinine 0.84 mg/dL (0.51-0.95) 05/12/19 21: Hemoglobin A1c 5.4 % (4.0-5.6) 05/14/19 07:27 Calcium 8.5 mg/dL (8.6-10.3) L 05/12/19 21: AST 22 U/L (13-39) 05/12/19 21: ALT 19 U/L (7-52) 05/12/19 21: Triglycerides 141 mg/dL 05/14/19 07:27 Cholesterol 214 mg/dL 05/14/19 07:27 LDL Cholesterol 123 mg/dL 05/14/19 07:27 Laboratory Results - last 24 hr 05/20/19 07:41 [place] 0.20 L Continued Medication Management: Continue Outpt Medication Medications: Current Medications Acetaminophen (Tylenol Tab*) 650 mg PO Q4H PRN PRN Reason: PAIN or TEMP > 101 F Al Hydrox/Mg Hydrox/Simethicone (Maalox Plus*) 30 ml PO Q4H PRN PRN Reason: INDIGESTION Amitriptyline HCl (Elavil Tab*) 75 mg PO DAILY [facility] Last Admin: 05/20/19 09:16 Dose: 75 mg Buspirone HCl (Buspar Tab*) 10 mg PO TID [facility] Last Admin: 05/20/19 09:16 Dose: 10 mg Docusate Sodium (Colace Liq*) 100 mg PO BID PRN PRN Reason: CONSTIPATION [place] Carbonate ([place] Carbonate Tab*) 300 mg PO BEDTIME [facility] Last Admin: 05/19/19 21:19 Dose: 300 mg Olanzapine (Zyprexa * Tab Odt) 5 mg PO Q6H PRN PRN Reason: AGITATION Last Admin: 05/17/19 05:30 Dose: 5 mg Ondansetron HCl (Zofran Tab*) 4 mg PO Q8H PRN PRN Reason: NAUSEA Last Admin: 05/15/19 11:31 Dose: 4 mg Trazodone HCl (Desyrel Tab*) 50 mg PO BEDTIME [facility] Last Admin: 05/19/19 21:18 Dose: 50 mg - Discharge Plan Discharge Plan: Inpatient Hospitalization Outpatient Program: [facility]
[2019-05-20] MEDS: Lithium Carbonate TAB* 300 MG PO SCH (21:35)
[2019-05-20] MEDS: traZODone TAB* 50 MG TAB PO SCH (21:35)
[2019-05-21] MEDS: Amitriptyline TAB* 25 MG PO SCH (08:43)
[2019-05-21] MEDS: busPIRone TAB* 10 MG PO SCH ×3 (08:44→21:49)
--- NOTE | 2019-05-21 11:23 | PN ---
Subjective - Subjective Date of Service: 05/21/19 Service Type: 23793 Hosp care 35 min high complexity Subjective: Nursing Report: Patient was visible on unit, no behavioral incidents. Slept overnight. Attending group activities. CC: "Okay Patient was seen and evaluated today. The patient reported she felt anxious when she witness another peer fighting. She reported having adequate appetite and sleep. The patient reports attending some day groups. Per nursing no behavioral issues Patient reported that she is tolerating medications without side effects. The patient got into a argument with her mother about accepting responsibility about how her mother treated her in the past. She continues to work on a safety plan and the MMPI and feels that staying until will allow her to complete those objectives. Objective - General Observations Appearance: Neat Appears Stated Age: Yes Stature: WNL Posture: WNL Eye Contact: Average Behavior/Activity: WNL - Interaction Observations Attitude Towards Examiner: Cooperative Stated Mood: Dysphoric Affect: Restricted Speech Pattern/Tone: Appropriate, Normal Volume Thought Process: Coherent Thought Content: Depressive Hallucination Type: Denies Delusion Type: Denies - Cognitive Function Orientation: A&O x 4 Level of Consciousness: Awake - Medication Compliance Cooperative with Inpatient Medication Regimen: Yes - Group Participation Participates in Group Activities: Yes Assessment - Assessment Merits Inpatient Hospitalization: For Immediate Safety Clinical Impression: 38 year old Female with a history of bipolar disorder and alcohol use disorder presented to the emergency department by EMS following a suicide attempt and was admitted to the BSU at [facility]. Plan - Plan Treatment Plan: Name: DARA FOURNIER Birthdate: 1980 [id number] # Q30 minute observation with staff pass # The patient requires psychiatric inpatient admission at this time to assure safety, receive treatment and work toward stabilization. # EKG ordered QTc 452 # B-HCG was ordered and results are negative. # Obtain collateral information once release is signed. # Collaboration with [employer] Andria Thomas # Patient declined alcohol treatment options # Patient plans to follow up at [facility] # DBT for Borderline personality disorder # Amitriptyline 75 mg daily # MMPI in process # Continue [place] 300mg qhs # Family meeting Monday 11am # [place] below normal limits patient refusing to increase dose # Trazodone 50mg qhs for sleep # Mother confirmed no access to firearms and plans to stay with patient after discharge Tentative discharge VBG pH 7.37 (7.32-7.43) 05/12/19 21: Sodium 138 mmol/L (135-145) 05/12/19 21: Potassium 3.7 mmol/L (3.5-5.0) 05/12/19 21: BUN 17 mg/dL (6-24) 05/12/19 21: Creatinine 0.84 mg/dL (0.51-0.95) 05/12/19 21:23 Hemoglobin A1c 5.4 % (4.0-5.6) 05/14/19 07:27 Calcium 8.5 mg/dL (8.6-10.3) L 05/12/19 21: AST 22 U/L (13-39) 05/12/19 21: ALT 19 U/L (7-52) 05/12/19 21:23 Triglycerides 141 mg/dL 05/14/19 07:27 Cholesterol 214 mg/dL 05/14/19 07:27 LDL Cholesterol 123 mg/dL 05/14/19 07:27 Laboratory Results - last 24 hr 05/20/19 07:41 [place] 0.20 L Continued Medication Management: Continue Outpt Medication Medications: Current Medications Acetaminophen (Tylenol Tab*) 650 mg PO Q4H PRN PRN Reason: PAIN or TEMP > 101 F Al Hydrox/Mg Hydrox/Simethicone (Maalox Plus*) 30 ml PO Q4H PRN PRN Reason: INDIGESTION Amitriptyline HCl (Elavil Tab*) 75 mg PO DAILY [facility] Last Admin: 05/21/19 08:43 Dose: 75 mg Buspirone HCl (Buspar Tab*) 10 mg PO TID [facility] Last Admin: 05/21/19 08:44 Dose: 10 mg Docusate Sodium (Colace Liq*) 100 mg PO BID PRN PRN Reason: CONSTIPATION [place] Carbonate ([place] Carbonate Tab*) 300 mg PO BEDTIME [facility] Last Admin: 05/20/19 21:35 Dose: 300 mg Olanzapine (Zyprexa * Tab Odt) 5 mg PO Q6H PRN PRN Reason: AGITATION Last Admin: 05/17/19 05:30 Dose: 5 mg Ondansetron HCl (Zofran Tab*) 4 mg PO Q8H PRN PRN Reason: NAUSEA Last Admin: 05/15/19 11:31 Dose: 4 mg Trazodone HCl (Desyrel Tab*) 50 mg PO BEDTIME [facility] Last Admin: 05/20/19 21:35 Dose: 50 mg - Discharge Plan Discharge Plan: Inpatient Hospitalization Outpatient Program: [facility]
--- NOTE | 2019-05-21 11:39 | PN ---
BSU: Group Therapy Note - Service Type Service Type: [id number] Group Psychotherapy - Cognitive Behavioral Group Therapy ( CBT):Patient was attentive and participatory in CBT programming this morning, and remained in good behavioral control. Patient expressed positive insights regarding relevant treatment interventions and goals.
[2019-05-21] MEDS: Lithium Carbonate TAB* 300 MG PO SCH (21:48)
[2019-05-21] MEDS: traZODone TAB* 50 MG TAB PO SCH (21:49)
[2019-05-22] MEDS: Amitriptyline TAB* 25 MG PO SCH (09:00)
[2019-05-22] MEDS: busPIRone TAB* 10 MG PO SCH ×3 (09:00→20:53)
--- NOTE | 2019-05-22 11:39 | PN ---
Subjective - Subjective Date of Service: 05/22/19 Service Type: 95602 Hosp care 35 min high complexity Subjective: Nursing Report: Patient was visible on unit, no behavioral incidents. Slept overnight. Attending group activities. CC: "I need to go to rehab Patient was seen and evaluated today. The patient expressed that rehabilitation would be beneficial to her and give her the best chance in helping her. Her friend, mother and step father came for a family meeting and are supportive of her desire of going to rehab. She reported having adequate appetite and sleep. The patient reports attending day groups. Per nursing no behavioral issues or overnight events reported. Patient reported that she is tolerating medications without side effects. Objective - General Observations Appearance: Neat Appears Stated Age: Yes Stature: WNL Posture: Slumped Eye Contact: Average Behavior/Activity: Accelerated, Impulsive - Interaction Observations Attitude Towards Examiner: Anxious Stated Mood: Dysphoric Affect: Restricted Speech Pattern/Tone: Normal Volume Thought Process: Goal Directed Perception: WNL Thought Content: Self-Deprecatory Thought Process: Lethality: Passive Wish Hallucination Type: Denies Delusion Type: Denies - Cognitive Function Orientation: A&O x 4 Level of Consciousness: Awake - Medication Compliance Cooperative with Inpatient Medication Regimen: Yes - Group Participation Participates in Group Activities: Yes Assessment - Assessment Merits Inpatient Hospitalization: For Immediate Safety Clinical Impression: 38 year old Female with a history of bipolar disorder and alcohol use disorder presented to the emergency department by EMS following a suicide attempt and was admitted to the BSU at [facility]. Plan - Plan Treatment Plan: Name: DARA FOURNIER Birthdate: 1980 [id number] # Q30 minute observation with staff pass # The patient requires psychiatric inpatient admission at this time to assure safety, receive treatment and work toward stabilization. # EKG ordered QTc 452 # B-HCG was ordered and results are negative. # Obtain collateral information once release is signed. # Collaboration with [employer] Andria Thomas # Social work in progress of making referrals for alcohol rehabilitation programs # Amitriptyline 75 mg daily # MMPI indicated increased hypomania and depression # Continue [place] 300mg qhs # Family meeting took place today. # [place] below normal limits patient reported stable mood and did not wish to increase dose # Trazodone 50mg qhs for sleep # Mother confirmed no access to firearms and plans to stay with patient after discharge Tentative discharge Pending VBG pH 7.37 (7.32-7.43) 05/12/19 21: Sodium 138 mmol/L (135-145) 05/12/19 21: Potassium 3.7 mmol/L (3.5-5.0) 05/12/19 21: BUN 17 mg/dL (6-24) 05/12/19 21: Creatinine 0.84 mg/dL (0.51-0.95) 05/12/19 21:23 Hemoglobin A1c 5.4 % (4.0-5.6) 05/14/19 07:27 Calcium 8.5 mg/dL (8.6-10.3) L 05/12/19 21: AST 22 U/L (13-39) 05/12/19 21: ALT 19 U/L (7-52) 05/12/19 21:23 Triglycerides 141 mg/dL 05/14/19 07:27 Cholesterol 214 mg/dL 05/14/19 07:27 LDL Cholesterol 123 mg/dL 05/14/19 07:27 Laboratory Results - last 24 hr 05/20/19 07:41 [place] 0.20 L Continued Medication Management: Continue Outpt Medication Medications: Current Medications Acetaminophen (Tylenol Tab*) 650 mg PO Q4H PRN PRN Reason: PAIN or TEMP > 101 F Al Hydrox/Mg Hydrox/Simethicone (Maalox Plus*) 30 ml PO Q4H PRN PRN Reason: INDIGESTION Amitriptyline HCl (Elavil Tab*) 75 mg PO DAILY [facility] Last Admin: 05/22/19 09:00 Dose: 75 mg Buspirone HCl (Buspar Tab*) 10 mg PO TID [facility] Last Admin: 05/22/19 09:00 Dose: 10 mg Docusate Sodium (Colace Liq*) 100 mg PO BID PRN PRN Reason: CONSTIPATION [place] Carbonate ([place] Carbonate Tab*) 300 mg PO BEDTIME [facility] Last Admin: 05/21/19 21:48 Dose: 300 mg Olanzapine (Zyprexa * Tab Odt) 5 mg PO Q6H PRN PRN Reason: AGITATION Last Admin: 05/17/19 05:30 Dose: 5 mg Ondansetron HCl (Zofran Tab*) 4 mg PO Q8H PRN PRN Reason: NAUSEA Last Admin: 05/15/19 11:31 Dose: 4 mg Trazodone HCl (Desyrel Tab*) 50 mg PO BEDTIME [facility] Last Admin: 05/21/19 21:49 Dose: 50 mg - Discharge Plan Discharge Plan: Drug/Alcohol Rehab
--- NOTE | 2019-05-22 16:45 | PN ---
BSU: Group Therapy Note - Service Type Service Type: [id number] Group Psychotherapy - Medication Education Group: Patient was attentive and participatory in group, and remained in good behavioral control. Patient expressed positive insights regarding relevant treatment interventions. Patient stated understanding of material discussed and had appropriate questions.
[2019-05-22] MEDS: Lithium Carbonate TAB* 300 MG PO SCH (20:53)
[2019-05-22] MEDS: traZODone TAB* 50 MG TAB PO SCH (20:53)
[2019-05-23] MEDS: Amitriptyline TAB* 25 MG PO SCH (10:59)
[2019-05-23] MEDS: busPIRone TAB* 10 MG PO SCH ×3 (10:59→21:34)
--- NOTE | 2019-05-23 11:53 | PN ---
BSU: Group Therapy Note - Service Type Service Type: [id number] Group Psychotherapy - Cognitive Behavioral Group Therapy ( CBT):Patient was attentive and participatory in CBT programming this morning, and remained in good behavioral control. Patient expressed positive insights regarding relevant treatment interventions and goals.
[2019-05-23] MEDS: traZODone TAB* 50 MG TAB PO SCH (21:35)
[2019-05-23] MEDS: Lithium Carbonate TAB* 300 MG PO SCH (21:35)
[2019-05-24 08:49] VITALS: BP 106/62
[2019-05-24] MEDS: Amitriptyline TAB* 25 MG PO SCH (09:31)
[2019-05-24] MEDS: busPIRone TAB* 10 MG PO SCH (09:31)
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
== END 2019-05-24 10:43 | DRG 885 ==
LOC: ED 21:00 → MERGE 05-13 03:12 → BSU 05-13 03:12
PROVIDERS: ADMIT Psychiatry & Neurology Psychiatry; ATTEND Psychiatry & Neurology Psychiatry
PROC: GZHZZZZ Group Psychotherapy (ICD-10-PCS; principal; 2019-05-16)
DX: F32.4 Major depressive disorder, single episode, in partial remission (principal); F60.3 Borderline personality disorder; T43.592A Poisoning by other antipsychotics and neuroleptics, intentional self-harm, initial encounter; T43.222A Poisoning by selective serotonin reuptake inhibitors, intentional self-harm, initial encounter; Z28.21 Immunization not carried out because of patient refusal; Z79.899 Other long term (current) drug therapy; Z72.89 Other problems related to lifestyle; Z91.5 Personal history of self-harm; Y92.9 Unspecified place or not applicable
CPT/HCPCS: 36415; 80053; 80061; 80178; 80307; 80320; 80329; 81003; 82140; 82803; 83036; 84443; 84702; 85025; 90853; 93005; 99222; 99233; 99284; A9270-GY; G0480